=== PATIENT | female | born 1930 | race Caucasian/White ===

== ENCOUNTER 2021-07-31 04:30 | Emergency (ER) | payer OTHER, MEDICARE ==
[~2021-07-31] VITALS: Ht 170.2 cm; Wt 77.3 kg
[2021-07-31 04:39] VITALS: BP 132/50
== END 2021-07-31 05:10 | disposition left against medical advice (07) ==
LOC: ER 04:32
DX: J02.9 Acute pharyngitis, unspecified (principal); Z53.21 Procedure and treatment not carried out due to patient leaving prior to being seen by health care provider